=== PATIENT | female | born 1970 | race Caucasian/White ===

== ENCOUNTER 2022-06-06 13:31 | Inpatient (IN) | payer OTHER ==
[2022-06-06 16:43] VITALS: BMI 24.2
[2022-06-06] MEDS ORDERED: IBUPROFEN 600 MG TABLET (FP) PO PRN (20:05)
[2022-06-06] MEDS ORDERED: DICYCLOMINE HCL 10 MG CAPSULE PO PRN (20:05)
[2022-06-06] MEDS ORDERED: MAG HYDROX/AL HYDROX/SIMETH 30 ML UNIT-DOSE CUP PO PRN (20:05)
[2022-06-06] MEDS ORDERED: IBUPROFEN 400 MG TABLET (FP) PO PRN (20:05)
[2022-06-06] MEDS ORDERED: ONDANSETRON *ODT* 4 MG TABLET SL PRN (20:05)
[2022-06-06] MEDS ORDERED: MAGNESIUM CITRATE 300 ML BOTTLE PO PRN (20:05)
[2022-06-06] MEDS ORDERED: LOPERAMIDE HCL 2 MG CAPSULE PO PRN (20:05)
[2022-06-06] MEDS ORDERED: BISMUTH SUBSALICYLATE 524 MG/30 ML PO PRN (20:05)
[2022-06-06] MEDS ORDERED: MAGNESIUM HYDROX 2400MG/30ML ORAL SUSPENSION 30 ML CUP PO PRN (20:05)
[2022-06-06] MEDS ORDERED: methaDONE HCL 10 MG TABLET (FOR DETOX USE ONLY) PO ONE (20:05)
[2022-06-06] MEDS ORDERED: BENZOCAINE/MENTHOL (CHLORASEPTIC ) LOZENGE MM PRN (20:05)
[2022-06-06] MEDS ORDERED: NICOTINE 10 MG CARTRIDGE (INHALER) IH PRN (20:05)
[2022-06-06] MEDS ORDERED: NALOXONE HCL (KLOXXADO) 8 MG SPRAY NS PRN (20:05)
[2022-06-06] MEDS ORDERED: ACETAMINOPHEN 325 MG TABLET (FP) PO PRN ×2 (20:05)
[2022-06-06] MEDS ORDERED: ALBUTEROL SO4 HFA INHALER IH PRN (20:10)
[2022-06-06] MEDS: THIAMINE HCL 100 MG TABLET (FP) PO SCH (21:32)
[2022-06-06] MEDS: hydrOXYzine PAMOATE 25 MG CAPSULE (FP) PO SCH (21:32)
[2022-06-06] MEDS: MELATONIN 5 MG TABLETS PO SCH (21:32)
[2022-06-07] MEDS: hydrOXYzine PAMOATE 25 MG CAPSULE (FP) PO SCH ×6 (06:03→21:17)
[2022-06-07] MEDS: cloNIDine HCL 0.1 MG TABLET PO PRN (07:05)
[2022-06-07] MEDS: PRENATAL VITAMINS W/ FOLIC ACID TABLET (FP) PO SCH (10:36)
[2022-06-07 15:52] LABS: HEMATOCRIT 37.7 % (32.4-45.2); HEMOGLOBIN 12.7 GM/dL (10.7-15.3); MCH 30.8 pg (25.7-33.7); MCHC 33.8 g/dl (32.0-36.0); MEAN PLT VOLUME 9.7 fl (7.5-11.1); PLATELET COUNT 152 10^3/uL (134-434); RBC 4.14 M/mm3 (3.60-5.2); RDW 13.8 % (11.6-15.6); WHITE BLOOD COUNT 5.8 K/mm3 (4.0-10.0)
[2022-06-07 16:00] LABS: CALCIUM 10.7 mg/dL (8.5-10.1)
[2022-06-07 16:01] LABS: ALBUMIN 2.6 g/dl (3.4-5.0); BLOOD UREA NITROGEN 8.2 mg/dL (7-18)
[2022-06-07 16:04] LABS: CREATININE 0.6 mg/dL (0.55-1.3)
[2022-06-07 16:05] LABS: TOT PROT 6.7 g/dl (6.4-8.2)
[2022-06-07 16:06] LABS: BILIRUBIN,TOTAL 0.1 mg/dL (0.2-1)
[2022-06-07] MEDS: THIAMINE HCL 100 MG TABLET (FP) PO SCH (21:17)
[2022-06-07] MEDS: MELATONIN 5 MG TABLETS PO SCH (21:17)
[2022-06-08] MEDS: hydrOXYzine PAMOATE 25 MG CAPSULE (FP) PO SCH ×5 (05:54→22:43)
[2022-06-08] MEDS ORDERED: methaDONE HCL 10 MG TABLET (FOR DETOX USE ONLY) PO ONE (10:00)
[2022-06-08] MEDS: PRENATAL VITAMINS W/ FOLIC ACID TABLET (FP) PO SCH (10:33)
[2022-06-08] MEDS: METHOCARBAMOL 500 MG TABLET PO PRN (10:35)
[2022-06-08] MEDS: cloNIDine HCL 0.1 MG TABLET PO PRN (12:24)
[2022-06-08] MEDS: MELATONIN 5 MG TABLETS PO SCH (22:43)
[2022-06-08] MEDS: THIAMINE HCL 100 MG TABLET (FP) PO SCH (22:43)
[2022-06-09] MEDS: hydrOXYzine PAMOATE 25 MG CAPSULE (FP) PO SCH ×5 (06:52→21:54)
[2022-06-09] MEDS: PRENATAL VITAMINS W/ FOLIC ACID TABLET (FP) PO SCH (10:40)
[2022-06-09] MEDS: diazePAM 5 MG TABLET PO PRN ×3 (12:40→21:53)
[2022-06-09] MEDS: THIAMINE HCL 100 MG TABLET (FP) PO SCH (21:54)
[2022-06-09] MEDS: MELATONIN 5 MG TABLETS PO SCH (21:54)
[2022-06-10] MEDS: hydrOXYzine PAMOATE 25 MG CAPSULE (FP) PO SCH ×5 (06:10→22:16)
[2022-06-10] MEDS: diazePAM 5 MG TABLET PO PRN ×3 (06:11→20:35)
[2022-06-10] MEDS ORDERED: methaDONE HCL 10 MG TABLET (FOR DETOX USE ONLY) PO ONE (10:00)
[2022-06-10] MEDS: PRENATAL VITAMINS W/ FOLIC ACID TABLET (FP) PO SCH (10:27)
[2022-06-10] MEDS ORDERED: TRIMETHOBENZAMIDE HCL 200MG/2ML INJ IM ONE (21:08)
[2022-06-10] MEDS: THIAMINE HCL 100 MG TABLET (FP) PO SCH (22:16)
[2022-06-10] MEDS: MELATONIN 5 MG TABLETS PO SCH (22:16)
[2022-06-10] MEDS: METHOCARBAMOL 500 MG TABLET PO PRN (22:17)
[2022-06-11] MEDS: diazePAM 5 MG TABLET PO PRN (05:28)
[2022-06-11] MEDS: hydrOXYzine PAMOATE 25 MG CAPSULE (FP) PO SCH ×2 (07:22→11:54)
[2022-06-11 08:42] VITALS: BP 116/67; PULSE 68; RESP 18; TEMP 96.7
[2022-06-11] MEDS: PRENATAL VITAMINS W/ FOLIC ACID TABLET (FP) PO SCH (11:54)
== END 2022-06-11 11:00 | disposition home or self-care (01) | DRG 773 ==
LOC: YASAS 13:31 → Y3N 19:38
PROVIDERS: ADMIT Allergy & Immunology; ATTEND Surgery
PROC: HZ2ZZZZ Detoxification Services for Substance Abuse Treatment (ICD-10-PCS; principal; 2022-06-06)
DX: F11.23 Opioid dependence with withdrawal (principal); F14.20 Cocaine dependence, uncomplicated; F17.210 Nicotine dependence, cigarettes, uncomplicated; E86.0 Dehydration; J45.20 Mild intermittent asthma, uncomplicated; R63.4 Abnormal weight loss; Z68.24 Body mass index [BMI] 24.0-24.9, adult; Z59.00 Homelessness unspecified; Z56.0 Unemployment, unspecified; Z88.0 Allergy status to penicillin; Z91.013 Allergy to seafood
CPT/HCPCS: 36415; 80053; 85027; 86780; C9803-CS; J0735; Q0162; U0003; U0005

== ENCOUNTER 2022-10-22 13:37 | Inpatient (IN) | payer OTHER ==
[2022-10-22 14:19] VITALS: BMI 22.2
[2022-10-22] MEDS ORDERED: ONDANSETRON *ODT* 4 MG TABLET SL PRN (16:29)
[2022-10-22] MEDS ORDERED: NALOXONE HCL (KLOXXADO) 8 MG SPRAY NS PRN (16:29)
[2022-10-22] MEDS ORDERED: MAG HYDROX/AL HYDROX/SIMETH 30 ML UNIT-DOSE CUP PO PRN (16:29)
[2022-10-22] MEDS ORDERED: LOPERAMIDE HCL 2 MG CAPSULE PO PRN (16:29)
[2022-10-22] MEDS ORDERED: ACETAMINOPHEN 325 MG TABLET (FP) PO PRN ×2 (16:29)
[2022-10-22] MEDS ORDERED: BISMUTH SUBSALICYLATE 524 MG/30 ML PO PRN (16:29)
[2022-10-22] MEDS ORDERED: NICOTINE 10 MG CARTRIDGE (INHALER) IH PRN (16:29)
[2022-10-22] MEDS ORDERED: POLYETHYLENE GLYCOL (HEALTHYLAX) 3350 17 GM PACKET PO PRN (16:29)
[2022-10-22] MEDS ORDERED: BENZOCAINE/MENTHOL (CHLORASEPTIC ) LOZENGE MM PRN (16:29)
[2022-10-22] MEDS ORDERED: DICYCLOMINE HCL 10 MG CAPSULE PO PRN (16:29)
[2022-10-22] MEDS ORDERED: NICOTINE POLACRILEX 2 MG GUM BUC PRN (16:29)
[2022-10-22] MEDS ORDERED: IBUPROFEN 600 MG TABLET (FP) PO PRN (16:29)
[2022-10-22] MEDS ORDERED: IBUPROFEN 400 MG TABLET (FP) PO PRN (16:29)
[2022-10-22] MEDS ORDERED: MAGNESIUM HYDROX 2400MG/30ML ORAL SUSPENSION 30 ML CUP PO PRN (16:29)
[2022-10-22] MEDS ORDERED: ALBUTEROL SO4 HFA INHALER IH PRN (16:31)
[2022-10-22] MEDS: METHOCARBAMOL 500 MG TABLET PO PRN (17:50)
[2022-10-22] MEDS: hydrOXYzine PAMOATE 25 MG CAPSULE (FP) PO PRN (17:50)
[2022-10-23] MEDS: MELATONIN 5 MG TABLETS PO SCH ×2 (00:06→22:36)
[2022-10-23] MEDS: THIAMINE HCL 100 MG TABLET (FP) PO SCH ×2 (00:06→22:36)
[2022-10-23] MEDS: hydrOXYzine PAMOATE 25 MG CAPSULE (FP) PO PRN (05:33)
[2022-10-23] MEDS: METHOCARBAMOL 500 MG TABLET PO PRN (05:33)
[2022-10-23] MEDS ORDERED: cloNIDine HCL 0.1 MG TABLET PO PRN (09:33)
[2022-10-23] MEDS ORDERED: methaDONE HCL 10 MG TABLET (FOR DETOX USE ONLY) PO ONE (09:33)
[2022-10-23] MEDS: PRENATAL VITAMINS W/ FOLIC ACID TABLET (FP) PO SCH (10:14)
[2022-10-24] MEDS: METHOCARBAMOL 500 MG TABLET PO PRN (09:35)
[2022-10-24] MEDS: hydrOXYzine PAMOATE 25 MG CAPSULE (FP) PO PRN ×2 (09:35→20:46)
[2022-10-24] MEDS: PRENATAL VITAMINS W/ FOLIC ACID TABLET (FP) PO SCH (09:35)
[2022-10-24] MEDS: THIAMINE HCL 100 MG TABLET (FP) PO SCH (22:15)
[2022-10-24] MEDS: MELATONIN 5 MG TABLETS PO SCH (22:15)
[2022-10-25] MEDS ORDERED: methaDONE HCL 10 MG TABLET (FOR DETOX USE ONLY) PO ONE (10:00)
[2022-10-25] MEDS: PRENATAL VITAMINS W/ FOLIC ACID TABLET (FP) PO SCH (10:12)
[2022-10-25] MEDS: METHOCARBAMOL 500 MG TABLET PO PRN (17:24)
[2022-10-25] MEDS: hydrOXYzine PAMOATE 25 MG CAPSULE (FP) PO PRN (17:24)
[2022-10-25 20:06] LABS: HEMATOCRIT 39.7 % (32.4-45.2); HEMOGLOBIN 12.7 GM/dL (10.7-15.3); MCH 29.6 pg (25.7-33.7); MCHC 32.1 g/dl (32.0-36.0); MEAN CELL VOLUME 92.3 fl (80-96); MEAN PLT VOLUME 9.3 fl (7.5-11.1); PLATELET COUNT 268 10^3/uL (134-434); RDW 14.4 % (11.6-15.6)
[2022-10-25 20:20] LABS: CALCIUM 10.9 mg/dL (8.5-10.1)
[2022-10-25 20:21] LABS: ALBUMIN 2.7 g/dl (3.4-5.0)
[2022-10-25 20:24] LABS: CREATININE 0.7 mg/dL (0.55-1.3)
[2022-10-25 20:26] LABS: BILIRUBIN,TOTAL 0.3 mg/dL (0.2-1); TOT PROT 7.7 g/dl (6.4-8.2)
[2022-10-25 20:30] LABS: BLOOD UREA NITROGEN 16.5 mg/dL (7-18)
[2022-10-25] MEDS: THIAMINE HCL 100 MG TABLET (FP) PO SCH (22:30)
[2022-10-25] MEDS: MELATONIN 5 MG TABLETS PO SCH (22:30)
[2022-10-26] MEDS: PRENATAL VITAMINS W/ FOLIC ACID TABLET (FP) PO SCH (10:09)
[2022-10-26] MEDS: MELATONIN 5 MG TABLETS PO SCH (22:45)
[2022-10-26] MEDS: THIAMINE HCL 100 MG TABLET (FP) PO SCH (22:45)
[2022-10-27 06:10] VITALS: RESP 16
[2022-10-27] MEDS ORDERED: methaDONE HCL 10 MG TABLET (FOR DETOX USE ONLY) PO ONE (10:00)
[2022-10-27] MEDS: PRENATAL VITAMINS W/ FOLIC ACID TABLET (FP) PO SCH (10:17)
[2022-10-27 17:30] VITALS: TEMP 98.2
[2022-10-27] MEDS: hydrOXYzine PAMOATE 25 MG CAPSULE (FP) PO PRN (19:35)
[2022-10-27 20:37] VITALS: BP 115/66; PULSE 79
== END 2022-10-27 20:40 | disposition left against medical advice (07) | DRG 770 ==
LOC: YASAS 13:37 → Y6N 17:07 → UNDOADMIN 17:07
PROVIDERS: ADMIT Allergy & Immunology; ATTEND Surgery
PROC: HZ2ZZZZ Detoxification Services for Substance Abuse Treatment (ICD-10-PCS; principal; 2022-10-22)
DX: F11.23 Opioid dependence with withdrawal (principal); F14.20 Cocaine dependence, uncomplicated; F17.210 Nicotine dependence, cigarettes, uncomplicated; J45.20 Mild intermittent asthma, uncomplicated; R74.01 Elevation of levels of liver transaminase levels; Z88.0 Allergy status to penicillin; Z91.013 Allergy to seafood
CPT/HCPCS: 36415; 80053; 81025; 82330; 84450; 85027; 86803; 87522; C9803-CS; U0003; U0005

== ENCOUNTER 2022-12-20 01:22 | Inpatient (IN) | payer OTHER ==
[2022-12-20 01:52] VITALS: RESP 16; BMI 22.2
[2022-12-20] MEDS ORDERED: ACETAMINOPHEN 325 MG TABLET (FP) PO PRN ×2 (02:36)
[2022-12-20] MEDS ORDERED: IBUPROFEN 400 MG TABLET (FP) PO PRN (02:36)
[2022-12-20] MEDS ORDERED: ONDANSETRON *ODT* 4 MG TABLET SL PRN (02:36)
[2022-12-20] MEDS ORDERED: DICYCLOMINE HCL 10 MG CAPSULE PO PRN (02:36)
[2022-12-20] MEDS ORDERED: NICOTINE 10 MG CARTRIDGE (INHALER) IH PRN (02:36)
[2022-12-20] MEDS ORDERED: LOPERAMIDE HCL 2 MG CAPSULE PO PRN (02:36)
[2022-12-20] MEDS ORDERED: IBUPROFEN 600 MG TABLET (FP) PO PRN (02:36)
[2022-12-20] MEDS ORDERED: MAGNESIUM HYDROX 2400MG/30ML ORAL SUSPENSION 30 ML CUP PO PRN (02:36)
[2022-12-20] MEDS ORDERED: METHOCARBAMOL 500 MG TABLET PO PRN (02:36)
[2022-12-20] MEDS ORDERED: MAG HYDROX/AL HYDROX/SIMETH 30 ML UNIT-DOSE CUP PO PRN (02:36)
[2022-12-20] MEDS ORDERED: POLYETHYLENE GLYCOL (HEALTHYLAX) 3350 17 GM PACKET PO PRN (02:36)
[2022-12-20] MEDS ORDERED: BENZOCAINE/MENTHOL (CHLORASEPTIC ) LOZENGE MM PRN (02:36)
[2022-12-20] MEDS ORDERED: NALOXONE HCL (KLOXXADO) 8 MG SPRAY NS PRN (02:36)
[2022-12-20] MEDS ORDERED: BISMUTH SUBSALICYLATE 524 MG/30 ML PO PRN (02:36)
[2022-12-20] MEDS ORDERED: cloNIDine HCL 0.1 MG TABLET PO PRN (03:25)
[2022-12-20] MEDS ORDERED: methaDONE HCL 10 MG TABLET (FOR DETOX USE ONLY) PO ONE (03:25)
[2022-12-20 09:52] VITALS: BP 117/76; PULSE 77; TEMP 97.9
[2022-12-20] MEDS ORDERED: PRENATAL VITAMINS W/ FOLIC ACID TABLET (FP) PO SCH (10:00)
[2022-12-20] MEDS ORDERED: MELATONIN 5 MG TABLETS PO SCH (22:00)
[2022-12-20] MEDS ORDERED: THIAMINE HCL 100 MG TABLET (FP) PO SCH (22:00)
[2022-12-22] MEDS ORDERED: methaDONE HCL 10 MG TABLET (FOR DETOX USE ONLY) PO ONE (10:00)
[2022-12-24] MEDS ORDERED: methaDONE HCL 10 MG TABLET (FOR DETOX USE ONLY) PO ONE (10:00)
== END 2022-12-20 10:40 | disposition left against medical advice (07) | DRG 770 ==
LOC: YASAS 01:22 → Y6N 03:00
PROVIDERS: ADMIT Allergy & Immunology; ATTEND Allergy & Immunology
PROC: HZ2ZZZZ Detoxification Services for Substance Abuse Treatment (ICD-10-PCS; principal; 2022-12-20)
DX: F11.23 Opioid dependence with withdrawal (principal); F14.20 Cocaine dependence, uncomplicated; F17.210 Nicotine dependence, cigarettes, uncomplicated; F31.9 Bipolar disorder, unspecified; F41.9 Anxiety disorder, unspecified; J45.909 Unspecified asthma, uncomplicated; Z59.00 Homelessness unspecified; Z56.0 Unemployment, unspecified; Z88.0 Allergy status to penicillin; Z91.013 Allergy to seafood
CPT/HCPCS: 81025; 93005; 93010; C9803-CS; U0003; U0005